=== PATIENT | female | born 1975 | race Caucasian/White ===

== ENCOUNTER 2017-02-09 05:35 | Day surgery (SDC) | payer BC ==
[~2017-02-09] VITALS: Ht 154.9 cm; Wt 78.0 kg
[2017-02-09] MEDS ORDERED: ROCURONIUM BROMIDE 10 MG/ML (ZEMURON) IV ONE (07:31)
[2017-02-09] MEDS ORDERED: BUPIVACAINE /EPINEPHRINE/PF 0.5% 30 ML VIAL INJ ONE (07:31)
[2017-02-09] MEDS ORDERED: DEXAMETHASONE SOD PHOSPHATE 4 MG/ML VIAL IVP ONE (07:31)
[2017-02-09] MEDS ORDERED: NS 1000 ML BAG IV ONE (07:31)
[2017-02-09] MEDS ORDERED: METOCLOPRAMIDE HCL 10 MG/2 ML VIAL IVP ONE (07:31)
[2017-02-09] MEDS ORDERED: SEVOFLURANE 15 MIN GAS INH ONE (07:31)
[2017-02-09] MEDS ORDERED: PROPOFOL 200MG/ 20ML VIAL (DIPRIVAN) IV ONE (07:31)
[2017-02-09] MEDS ORDERED: CEFAZOLIN 2 GM IVPB PREMIX 50 ML IV ONE (07:31)
[2017-02-09] MEDS ORDERED: NS IRRIG SOLN 1000 ML IR ONE (07:31)
[2017-02-09] MEDS ORDERED: fentaNYL CITRATE/PF 100 MCG/2 ML AMP IVP ONE (07:31)
[2017-02-09] MEDS ORDERED: MIDAZOLAM HCL 5 MG/5 ML VIAL IVP ONE (07:31)
[2017-02-09] MEDS ORDERED: LR 1,000 ML IV.SOLN IV ONE (07:31)
[2017-02-09] MEDS ORDERED: KETOROLAC TROMETHAMINE 30 MG VIAL IVP ONE (07:31)
[2017-02-09] MEDS ORDERED: MEPERIDINE HCL/PF 100 MG/ML AMP IM ONE (07:31)
[2017-02-09] MEDS ORDERED: GLYCOPYRROLATE 0.2 MG/ML VIAL IJ ONE (07:31)
[2017-02-09] MEDS ORDERED: LR 1,000 ML IV ONE (08:36)
[2017-02-09] MEDS ORDERED: NALBUPHINE HCL 10 MG/ML AMP IVP PRN (08:45)
[2017-02-09] MEDS ORDERED: fentaNYL CITRATE/PF 100 MCG/2 ML AMP IVP PRN (08:45)
[2017-02-09] MEDS ORDERED: ONDANSETRON HCL 4 MG/2 ML VIAL IVP PRN ×3 (08:45→10:00)
[2017-02-09] MEDS ORDERED: ePHEDrine sulfate 50 MG/ML VIAL IVP PRN (08:45)
[2017-02-09] MEDS ORDERED: DIPHENHYDRAMINE INJ 50 MG/ML VIAL IVP PRN (08:45)
[2017-02-09] MEDS ORDERED: NALOXONE HCL 0.4 MG/ML AMP (NARCAN) IVP PRN (08:45)
[2017-02-09] MEDS ORDERED: HYDROmorphone 2 MG TAB PO PRN (10:00)
[2017-02-09] MEDS ORDERED: PROMETHAZINE HCL 25 MG/ML AMP IM PRN (10:00)
[2017-02-09] MEDS ORDERED: OXYCODONE/ACETAMINOPHEN 5-325 TABLET PO PRN (10:00)
[2017-02-09] MEDS ORDERED: fentaNYL CITRATE/PF 100 MCG/2 ML AMP ONE (11:04)
[2017-02-09] MEDS ORDERED: OXYCODONE/ACETAMINOPHEN 5-325 TABLET ONE (11:51)
[2017-02-09 13:29] VITALS: BP_SYST 126
== END 2017-02-09 14:45 | disposition home or self-care (01) ==
LOC: SMU 05:35 → SDS 05:35
PROVIDERS: ATTEND Obstetrics & Gynecology
DX: D25.2 Subserosal leiomyoma of uterus (principal); D25.1 Intramural leiomyoma of uterus; N72 Inflammatory disease of cervix uteri; Z98.890 Other specified postprocedural states; D64.9 Anemia, unspecified; E66.3 Overweight
CPT/HCPCS: 36415; 57000; 58573; 86886; 86900; 86901; 88307; J0690; J1100; J1885; J2175; J2250; J2704; J2765; J3010; J3490 ×2; J7030; J7120; E0190

== ENCOUNTER 2024-01-30 22:49 | Emergency (ER) | payer BC ==
[~2024-01-30] VITALS: Ht 154.9 cm; Wt 74.8 kg
[2024-01-30 22:54] VITALS: BP_SYST 134; PULSE 64; RESP 18; TEMP 97; O2SAT 98
[2024-01-30] MEDS: ASPIRIN 81 MG TAB.CHEW PO ONE (23:38)
[2024-01-30] MEDS: ASPIRIN 325 MG TABLET PO ONE (23:40)
[2024-01-31 00:28] LABS: BASOPHILS # (AUTO) 0.1 K/uL (0.0-0.2); BASOPHILS % (AUTO) 1.6 % (0.0-2.0); EOSINOPHILS # (AUTO) 0.3 K/uL (0.0-0.4); EOSINOPHILS % (AUTO) 3.7 % (0.0-4.0); HEMATOCRIT 39.4 % (36-48); HEMOGLOBIN 13.6 g/dL (12.0-16.0); LYMPHOCYTES % (AUTO) 51.8 % (20.5-51.5); MEAN CORPUSCULAR HEMOGLOBIN 30 pg (27-31); MEAN CORPUSCULAR HGB CONC 34 % (32-36); MEAN CORPUSCULAR VOLUME 87 fL (79.0-98.0); MONOCYTES # (AUTO) 0.4 K/uL (0.0-1.0); MONOCYTES % (AUTO) 5.5 % (1.7-9.3); NEUTROPHILS # (AUTO) 2.9 K/uL (1.8-7.7); NEUTROPHILS % (AUTO) 37.4 % (40.0-70.0); PLATELET COUNT (AUTO) 293 K/uL (130-430); RED BLOOD CELL COUNT(AUTO) 4.53 MIL/uL (4.2-6.2); WHITE BLOOD COUNT (AUTO) 7.7 K/uL (4.8-10.8)
[2024-01-31 01:04] LABS: ANION GAP 11 (5-15); CALCIUM 9.3 mg/dL (8.4-11.0); CARBON DIOXIDE 28 mmol/L (23-29); CHLORIDE 100 mmol/L (98-107); CREATININE 0.86 mg/dL (0.55-1.30); GFR AFRICAN AMERICAN 90 mL/min (>90); GLUCOSE 297 mg/dL (74-106); POTASSIUM 4.2 mmol/L (3.5-5.1); SODIUM SERUM 139 mmol/L (136-145); UREA NITROGEN, BLOOD 14 mg/dL (8-21)
[2024-01-31 01:06] LABS: GFR NON AFRICAN-AMERICAN 74 mL/min (>90)
[2024-01-31 01:51] VITALS: BP_SYST 115; PULSE 47; RESP 18; TEMP 97; O2SAT 96
== END 2024-01-31 01:51 | disposition home or self-care (01) ==
LOC: SED 22:49
DX: R07.89 Other chest pain (principal); R10.13 Epigastric pain
CPT/HCPCS: 36415; 71045; 80048; 83880; 84484; 85025; 93005; 99285